=== PATIENT | female | born 1945 | race Caucasian/White ===

== ENCOUNTER 2017-05-05 14:18 | Emergency (ER) | payer MEDICARE, BC ==
[2017-05-05 14:25] VITALS: BP 140/74
[2017-05-05] MEDS ORDERED: PROPARACAINE 0.5% OPHTH DROPS 15 ML RIGHTEYE STA (15:28)
--- NOTE | 2017-05-05 15:42 | ED Physician Documentation ---
PD HPI OPHTHO - Stated complaint Stated Complaint: RIGHT EYE PAIN - Chief complaint Chief Complaint: Heent - History obtained from History obtained from: Patient - History of Present Illness Timing - onset: Other (She says she been having an ongoing dispute with her neighbors and she thinks that they are shining laser lights that are noticed either a spot or something on the lateral right sclera. Her vision is normal.) Review of Systems Constitutional: denies: Fever, Chills Eyes: reports: Discharge, Irritation. denies: Loss of vision, Decreased vision , Photophobia Ears: denies: Loss of hearing, Ear pain PD PAST MEDICAL HISTORY - Past Medical History Past Medical History: Yes Cardiovascular: Hypertension Endocrine/Autoimmune: HyPOthyroidism Musculoskeletal: Osteoporosis - Past Surgical History Past Surgical History: Yes Ortho: Other - Present Medications Home Medications: Ambulatory Orders Medication Instructions Recorded Confirmed Meloxicam [Mobic] 1 tab PO DAILY 05/05/17 05/05/17 Naphazoline HCl/Pheniramine 1 drops OP QID PRN #1 bot 05/05/17 [Naphcon-A Eye Drops] Ramipril 1 tab PO DAILY 05/05/17 05/05/17 Thyroid,Pork [[place] Thyroid] 1 tab PO DAILY 05/05/17 05/05/17 - Allergies Allergies/Adverse Reactions: Allergies Allergy/AdvReac Type Severity Reaction Status Date / Time No Known Drug Allergies Allergy Verified 05/05/17 14:25 - Social History Does the pt smoke?: No Smoking Status: Never smoker Does the pt drink ETOH?: No Does the pt have substance abuse?: No - Immunizations Immunizations are current?: Yes - POLST Patient has POLST: No PD ED PE NORMAL - Vitals Vital signs reviewed: Yes - General General: Alert and oriented X 3, No acute distress - HEENT HEENT: PERRL, EOMI, Other (There is no evidence of eye or scleral injury, fluorescein examination bilaterally is negative.) - Neck Neck: Supple, no meningeal sign, No bony TTP - Neuro Neuro: Alert and oriented X 3, change management coordinator 2-12 intact - Psych Psych: Normal mood, Normal affect Results - Vitals Vitals: Vital Signs - 24 hr 05/05/17 14:22 Temperature 36.6 C Heart Rate 96 Respiratory 20 Rate Blood Pressure 140/74 H O2 Saturation 98 Oxygen O2 Source Room air Departure - Departure Disposition: 01 Home, Self Care Clinical Impression: Normal exam Condition: Good Record reviewed to determine appropriate education?: Yes Follow-Up: Moises White MD [Provider Admit Priv/Credential] - As Needed Prescriptions: Naphazoline HCl/Pheniramine [Naphcon-A Eye Drops] 1 drops OP QID PRN #1 bot PRN Reason: irritation Comments: Your blood pressure was elevated today on check into the emergency department. This does not mean that you have hypertension, it is a common phenomenon to come to the emergency department and have elevated blood pressure. I recommend that you see your primary care physician within the week to have it rechecked when you are feeling better.
== END 2017-05-05 15:57 | disposition home or self-care (01) ==
LOC: EDSEX 14:18 → ED 14:18
DX: Z04.8 Encounter for examination and observation for other specified reasons (principal); I10 Essential (primary) hypertension; E03.9 Hypothyroidism, unspecified
CPT/HCPCS: 99283; J3490

== ENCOUNTER 2018-10-14 13:38 | Emergency (ER) | payer MEDICARE, BC ==
--- NOTE | 2018-10-14 14:30 | ED Physician Documentation ---
History of Present Illness - Stated complaint Stated Complaint: LT LEG PAIN/SWELLING - Chief complaint Chief Complaint: Ext Problem - History obtained from History obtained from: Patient - History of Present Illness Timing: How many weeks ago (1) Pain level max: 3 Pain level now: 2 Improved by: rest Worsened by: movement - Additonal information Additional information: states h/o L TKR. States feels stiff for the past week. Review of Systems Constitutional: denies: Fever, Chills GI: denies: Vomiting, Diarrhea Skin: denies: Rash PD PAST MEDICAL HISTORY - Past Medical History Cardiovascular: Hypertension Endocrine/Autoimmune: HyPOthyroidism Musculoskeletal: Osteoporosis - Past Surgical History Past Surgical History: Yes Ortho: Other - Present Medications Home Medications: Ambulatory Orders Medication Instructions Recorded Confirmed Meloxicam [Mobic] 1 tab PO DAILY 05/05/17 10/14/18 Naphazoline HCl/Pheniramine 1 drops OP QID PRN #1 bot 05/05/17 10/14/18 [Naphcon-A Eye Drops] Ramipril 1 tab PO DAILY 05/05/17 10/14/18 Levothyroxine Sodium 125 mcg PO DAILY 10/14/18 10/14/18 - Allergies Allergies/Adverse Reactions: Allergies Allergy/AdvReac Type Severity Reaction Status Date / Time No Known Drug Allergies Allergy Verified 10/14/18 13:52 - Social History Does the pt smoke?: No Smoking Status: Never smoker Does the pt drink ETOH?: No Does the pt have substance abuse?: No - Immunizations Immunizations are current?: Yes - POLST Patient has POLST: No PD ED PE NORMAL - Vitals Vital signs reviewed: Yes - General General: Alert and oriented X 3, No acute distress - HEENT HEENT: Moist mucous membranes - Derm Derm: Warm and dry - Extremities Extremities: Other (Mild swelling to the left knee. No bony tenderness. No redness. No warmth. No calf tenderness or cord. No swelling below the knee. Neurovascularly intact. Joint is stable in all directions) - Neuro Neuro: Alert and oriented X 3 Results - Vitals Vitals: Vital Signs - 24 hr 10/14/18 10/14/18 13:44 15:31 Temperature 36.6 C 36.7 C Heart Rate 65 80 Respiratory 18 14 Rate Blood Pressure 157/114 H 154/64 H O2 Saturation 95 20 L Oxygen O2 Source Room air - Rads (name of study) L knee xray Radiology: Prelim report reviewed, EMP read contemporaneously, See rad report (No evidence of fracture or subluxation, minimal effusion. ) PD MEDICAL DECISION MAKING - ED course Complexity details: reviewed results, considered differential, d/w patient ED course: 73-year-old female with a small effusion in her left knee. No evidence of fracture or subluxation. Arthroplasty hardware is in place. No evidence of new injury. We will follow-up with her doctor for further care. Patient counseled regarding signs and symptoms for which I believe and urgent re-evaluation would be necessary. Patient with good understanding of and agreement to plan and is comfortable going home at this time This document was made in part using voice recognition software. While efforts are made to proofread this document, sound alike and grammatical errors may occur. Departure - Departure Disposition: 01 Home, Self Care Clinical Impression: Effusion, left knee Condition: Good Instructions: ED Effusion Knee Follow-Up: your,doctor in 1 week [Other] Comments: Your hardware appears normal in your knee. You do have mild swelling in the knee. Follow up with your doctor for further care. Return if you worsen. Discharge Date/Time: 10/14/18 15:31
--- NOTE | 2018-10-14 15:13 | XRAY Report ---
Reason: knee swelling, history of TKR Procedure Date: 10/14/2018 Accession Number: [id number] / [id number] Procedure: XR - Knee 2 View LT CPT Code: FULL RESULT: EXAM: LEFT KNEE RADIOGRAPHY EXAM DATE: 10/14/2018 03:08 PM. CLINICAL HISTORY: Knee swelling, history of total knee replacement. COMPARISON: None. TECHNIQUE: 2 views. FINDINGS: Bones: No fracture is detected. Joints: Patient is status post knee arthroplasty with minimal joint effusion. No subluxation. Soft Tissues: Normal. No soft tissue swelling. IMPRESSION: No evidence of fracture or subluxation, minimal effusion. [facility]
[2018-10-14 15:35] VITALS: BP 154/64
== END 2018-10-14 15:31 | disposition home or self-care (01) ==
LOC: ED 13:38
DX: M25.462 Effusion, left knee (principal); I10 Essential (primary) hypertension
CPT/HCPCS: 99282; 99283